=== PATIENT | female | born 1950 | race Caucasian/White ===

== ENCOUNTER → 2023-09-22 09:48 | Outpatient (CLI) | payer MEDICARE, SELFPAY ==
--- NOTE | 2023-09-22 09:52 | DI.RAD.S_ITS ---
PROCEDURE: XR LUMBAR SPINE MIN 4V INDICATIONS: BACK PAIN TECHNIQUE: 5 views of the lumbar spine were acquired, including bilateral oblique views. COMPARISON: Outside Facility, MR, MR LUMBAR SPINE WO CON, 05/29/2023, 10:45. FINDINGS: Bones: 5 nonrib-bearing vertebrae are present. There is moderate dextroscoliosis with the apex at L2. No vertebral body compression fractures. No suspicious bony lesions. Multilevel degenerative disc disease, severe at L1-L2, L2-L3, moderate at L3-L4, L4-L5 and L5-S1. Moderate facet arthropathy throughout the lumbar spine. Osteopenia. Soft tissues: Overlying bowel gas pattern is normal. Severe atherosclerotic calcifications. Oblique images: No pars defects. IMPRESSION: 1. Scoliosis and severe degenerative changes in lumbar spine as described. 2. Osteopenia 3. Severe atherosclerosis. Dictated by: Jed Qiu M.D. on 09/22/2023 at 9:56 Approved by: Jed Qiu M.D. on 09/22/2023 at 9:58
== END ==
PROVIDERS: Family Provider Family Medicine; PCP Family Medicine; Referring Provider Physical Medicine & Rehabilitation; Visit Provider Physical Medicine & Rehabilitation
DX: M51.36 Other intervertebral disc degeneration, lumbar region (principal); M51.37 Other intervertebral disc degeneration, lumbosacral region; M47.816 Spondylosis without myelopathy or radiculopathy, lumbar region; M54.9 Dorsalgia, unspecified; M41.9 Scoliosis, unspecified; M85.88 Other specified disorders of bone density and structure, other site
CPT/HCPCS: 72110

== ENCOUNTER 2023-10-28 09:48 | Outpatient (CLI) | payer MEDICARE, SELFPAY ==
[2023-10-28] VITALS (9 sets, daily range): BP systolic 131–183; BP diastolic 60–80; PULSE 60–63; RESP 15–20; TEMP 36.4; O2SAT 16–99
--- NOTE | 2023-10-28 10:45 | DI.RAD.S_ITS ---
PROCEDURE: PAIN L INTERLAMINAR/CAUDAL INJ INDICATIONS: L4-5 TL PATIENCE COMPARISON: None. FINDINGS: Fluoroscopic spot filming was performed to verify placement of spinal needles at the L4-5 level(s), as labeled on the films. Appropriate location(s) of the needle tip(s) was confirmed by injection of iodinated contrast. IMPRESSION: Fluoro guidance was provided for L4-5 PATIENCE performed by ordering physician. Dictated by: Hector Perez M.D. on 10/28/2023 at 16:15 Approved by: Hector Perez M.D. on 10/28/2023 at 16:17
[2023-10-28] MEDS: MIDAZOLAM 2 MG/2 ML VIAL IV (11:47)
[2023-10-28] MEDS: BUPIVACAINE 0.25% (PF) VIAL 2 ML INJ (11:50)
[2023-10-28] MEDS: iopamidoL 15 ML VIAL 3 ML INJ (11:50)
[2023-10-28] MEDS: BETAMETHASONE 30 MG/5 ML MDV 6 MG INJ (11:50)
[2023-10-28] MEDS: LIDOCAINE 1% 20 ML 5 ML INJ (11:51)
[2023-10-28] MEDS: DEXAMETHASONE 10 MG/ML VIAL INJ (11:51)
--- NOTE | 2023-10-28 12:09 | P.PCN_ITS ---
Date/Time/Diagnoses Date of procedure: 10/28/23 Time of procedure: 12:09 Pre-procedure diagnosis: 1. HNP WITH RADICULAR FEATURES, 2. MULTILEVEL CENTRAL STENOSIS, Post-procedure diagnosis: same Procedure Notes Procedure: 1. FLUOROSCOPICALLY GUIDED CONTRAST CONTROLLED INTERLAMINAR EPIDURAL STEROID INJECTION -L4/5 Indications: Alejandra is referred by Dr. Caicedo for treatment of Bilateral Foraminal Stenosis R>L LE symptoms. Physician: Jesus Lindsey Total Fluoroscopy time (seconds): 20 Total sedation minutes: 17 Complications: none Procedure in detail & Post-procedure care: FINDINGS Multilevel Central Spinal Stenosis with Nerve Root Compression DESCRIPTION OF PROCEDURE Fluoroscopically guided, contrast-controlled L4/5 translaminar epidural steroid injection. Following review of allergy and review of potential side effects and complications, including, but not necessarily limited to, infection, allergic reaction, local tissue breakdown, temporary as well as permanent nerve injury, paralysis, stroke and possible , the patient indicated that the patient understood and agreed to proceed. An informed consent document was signed by the patient, witnessed by a nurse, and placed in the patient's chart. Additionally, other treatment options including modalities, medications, and physical therapy were reviewed with the patient. After review of previous anaesthesic history and IV conscious sedation the patient was deemed safe to proceed with today?s procedure with IV conscious sedation as ASA class II designation. Safety time-out was performed to confirm patient ID, procedure to be performed and site of procedure. IV sedation was accomplished with a combination of 2mg of Versed was administered by the RN after DO order, titrated to patient comfort during the course of the procedure while the patient remained responsive to all verbal commands In the prone position, following sterile prep and drape of the lumbar region, the L4/5 translaminar space was identified fluoroscopically. The skin was anesthetized via a 25-gauge, 1.5inch needle with 1% lidocaine solution. At this point, a 22-gauge short bevel spinal needle was atraumatically introduced and advanced under fluoroscopic guidance into the region of the L4/5 translaminar space. Depth was confirmed on lateral view. Radiological data, including multiple fluoroscopic views of the lumbar spine, reveal a spinal needle at the L4/5 translaminar space. Lateral views then show placement of the needle in the epidural space. Subsequent views show contrast material flowing superiorly and inferiorly in the epidural space. No vascular or intrathecal uptake is observed. At this point, using loss of resistance technique with saline and air, the epidural space was entered. This was confirmed following negative aspiration with injection of approximately 1.5cc of Isovue 200, showing excellent epidural flow without vascular or intrathecal uptake. At this point, 1cc of 1% lidocaine solution combined with 3cc or 10mg of dexamethasone and 12mg betamethasone was injected without incident. The patient tolerated the procedure well without signs or symptoms of complications prior to transfer to the recovery area continued monitoring without incident. The patient was then transferred to the recovery area where they were observed for an appropriate period of time after the injection. The patient reported a VAS score of 6 prior to the procedure and a post- procedure VAS of 0. POST OP INSTRUCTIONS The patient was provided a Pain Log to continue to record their response to the target-specific procedure prior to follow-up visit with their referring physician. Additionally, specific post-injection care instructions and a contact number to our office were provided if concerns arise regarding possible complications associated with the procedure are suspected.
== END 2023-10-28 12:25 | disposition home or self-care (01) ==
PROVIDERS: Family Provider Family Medicine; PCP Family Medicine; Referring Provider Physical Medicine & Rehabilitation; Visit Provider Physical Medicine & Rehabilitation
DX: M51.16 Intervertebral disc disorders with radiculopathy, lumbar region (principal); M48.061 Spinal stenosis, lumbar region without neurogenic claudication
CPT/HCPCS: 62323; 99152; J0702; J1100; J2250; J3490

== ENCOUNTER → 2025-01-16 10:25 | Outpatient (CLI) | payer MEDICARE, SELFPAY ==
--- NOTE | 2025-01-16 10:26 | DI.RAD.S_ITS ---
PROCEDURE: XR LUMBAR SPINE MIN 4V INDICATIONS: pain TECHNIQUE: 5 views of the lumbar spine acquired, including flexion and extension views. COMPARISON: [facility], CR, XR LUMBAR SPINE MIN 4V, 09/22/2023, 9:51. FINDINGS: Lumbar spine curvature and alignment: Moderate dextroscoliosis of the lumbar spine is unchanged from comparison exam 1.5 years ago Bones: Mild chronic wedge compression fractures T10 through L4 are radiographically stable. Disc spaces: Severe degenerative disc disease T10-11 through L5-S1. Severe L1- 2 through L5-S1 degenerative facet disease all progressing slightly . Soft tissues: No soft tissue swelling, calcification or mass. IMPRESSION: Multilevel degeneration progressing mild chronic compression fractures T10 through L4 unchanged radiographically Dictated by: Salomon Gastelum M.D. on 01/17/2025 at 10:22 Approved by: Salomon Gastelum M.D. on 01/17/2025 at 10:23
== END ==
PROVIDERS: Family Provider Family Medicine; PCP Family Medicine; Referring Provider Physical Medicine & Rehabilitation; Visit Provider Physical Medicine & Rehabilitation
DX: M51.34 Other intervertebral disc degeneration, thoracic region (principal); M51.369 Other intervertebral disc degeneration, lumbar region without mention of lumbar back pain or lower extremity pain; M51.379 Other intervertebral disc degeneration, lumbosacral region without mention of lumbar back pain or lower extremity pain; M47.816 Spondylosis without myelopathy or radiculopathy, lumbar region; M47.817 Spondylosis without myelopathy or radiculopathy, lumbosacral region; M48.54XA Collapsed vertebra, not elsewhere classified, thoracic region, initial encounter for fracture; M48.56XA Collapsed vertebra, not elsewhere classified, lumbar region, initial encounter for fracture; R52 Pain, unspecified
CPT/HCPCS: 72110

== ENCOUNTER 2025-01-31 10:14 | Outpatient (CLI) | payer MEDICARE, SELFPAY ==
[2025-01-31 10:50] VITALS: BP 139/64; PULSE 65; RESP 16; TEMP 36.7; O2SAT 95
[2025-01-31 11:06] VITALS: PULSE 71; RESP 18; O2SAT 95
[2025-01-31] MEDS: LIDOCAINE 1% (PF) 5 ML INJ (11:09)
[2025-01-31 11:12] VITALS: BP 192/83; PULSE 60; RESP 17; O2SAT 95
[2025-01-31 11:20] VITALS: BP 118/51; PULSE 74; RESP 16; O2SAT 95
--- NOTE | 2025-01-31 12:38 | PM.PROC.IR.1 ---
Date/Time/Diagnoses Date of procedure: 01/31/25 Time of procedure: 11:00 Pre-procedure diagnosis: Lumbosacral radiculopathy Post-procedure diagnosis: same Procedure Notes Procedure: Interlaminar epidural steroid injection L5-S1 Indications: Lumbosacral radiculopathy Physician: Juan Carlos Bronson Total sedation minutes: 0 Complications: none Procedure in detail & Post-procedure care: Patient is here for the planned procedure today as noted. No significant change since the last office visit. For additional clinical scenario please see those office notes. Focused exam: Vital signs reviewed as charted on intake. Gen: Well developed. No acute distress. CV: RRR, no M/R/G Chest: Non-labored breathing, CTAB. Psych: Alert and well-oriented. Mood/Affect: normal. Patient suitable for the planned procedure today: Yes === The following procedure was performed in the office today: Lumbar Epidural Steroid Injection with fluoroscopic guidance - Interlaminar approach (01570) Levels Treated: [L5-S1] Approach: interlaminar Soft tissue: [1% lidocaine 2 mL] Test dose: [1% lidocaine 1 mL] Injectate: 0.75 mL of Depo-Medrol (80mg/mL) in 1 mL 1% lidocaine and 1.5 mL normal saline Fluoroscopy Agent: Isovue 300-M 1.5 mL Notes: 3.5 in 20 gauge Touhy needle utilized an adequate. Right paramedian approach utilized. Preprocedure pain 6/10, postprocedure pain 2/10. Procedure: After discussing the risks, benefits, and alternatives to the procedure, the patient expressed understanding and wished to proceed. The risks include but are not limited to infection, allergic reaction, nerve damage, stroke, paralysis, epidural hematoma, syncope, headache, respiratory or cardiac arrest, spinal cord injury, and scar formation. Informed consent was obtained and all patient questions were answered. The patient was brought to the procedure suite and placed in the prone position. A pre-procedural pause was conducted to verify: correct patient identity, procedure to be performed and as applicable, correct side and site, correct patient position, and any special requirements. Using a paramedian approach from the side noted above, the region overlying the target was localized under fluoroscopic visualization and the soft tissues overlying this structure were infiltrated with the anesthetic listed above. With fluoroscopic guidance, a #20 gauge Tuohy needle (unless otherwise noted) was inserted into the epidural space using a paramedian approach. The epidural space was localized utilizing intermittent multiplanar fluoroscopic guidance and loss of resistance technique. After negative aspiration, the contrast noted above was injected into the epidural space and the flow of contrast was observed, confirming epidural spread without evidence of intravascular or intrathecal spread. Multi-planar radiographs were obtained for documentation purposes. A test dose of lidocaine was injected into the above noted epidural space, and the patient was observed for 30-60 seconds. No sensory deficits were reported and normal lower extremity motor function was noted. Subsequently, the injectate as noted above was administered into the level noted above. The patient tolerated the procedure well and was discharged after an appropriate period of observation. If there are any complications, the patient was instructed to call us. The patient is to follow-up with the requesting provider in 2-3 weeks. This note was compiled using voice recognition software and therefore may contain typos. Please contact the author with any questions or concerns.
== END 2025-01-31 11:25 | disposition home or self-care (01) ==
LOC: RAD 10:15
PROVIDERS: Family Provider Family Medicine; PCP Family Medicine; Referring Provider Physical Medicine & Rehabilitation; Visit Provider Physical Medicine & Rehabilitation
DX: M54.17 Radiculopathy, lumbosacral region (principal)
CPT/HCPCS: 62323; J1010